=== PATIENT | male | born 1965 | race Caucasian/White ===

== ENCOUNTER 2018-08-01 08:52 | Day surgery (SDC) | payer BC ==
[2018-07-28 10:16] VITALS: BMI 27.5
[2018-08-01] MEDS ORDERED: PROPOFOL 20 ML ONE ×2 (10:50)
[2018-08-01 11:27] VITALS: TEMP 98
[2018-08-01 12:00] VITALS: BP 136/82; PULSE 78
--- NOTE | 2018-08-03 09:35 | PATH ---
Surgical Pathology Report Patient Name: SHEA DICKEY [facility]. Rec. #: [id number] /Age/Gender: 1965 (Age: 53) / M Account: [id number] Location: [facility] Taken: 08/01/2018 Received: 08/01/2018 Reported: 08/03/2018 Physicians: Michael Gaines M.D. Specimen(s) Received BX POLYP SIGMOID COLON Clinical History Screening Postoperative diagnosis: Polyp Final Diagnosis COLON, SIGMOID, BIOPSY: TUBULAR ADENOMA. Electronically Signed Modesto Medina M.D. Gross Description Received in formalin, labeled "biopsy polyp sigmoid colon" is a yoo, irregular portion of soft tissue measuring 0.3 cm. in greatest dimension. The specimen is submitted in toto in one cassette. /08/02/201808/02/2018
== END 2018-08-01 12:00 | disposition home or self-care (01) ==
LOC: FASU-ENDO 08:52
PROVIDERS: ATTEND Internal Medicine Gastroenterology
PROC: 0DBN8ZX Excision of Sigmoid Colon, Via Natural or Artificial Opening Endoscopic, Diagnostic (ICD-10-PCS; principal; 2018-08-01 10:52)
DX: Z12.11 Encounter for screening for malignant neoplasm of colon (principal); D12.5 Benign neoplasm of sigmoid colon
CPT/HCPCS: 88305-TC